=== PATIENT | male | born 1980 | race Caucasian/White ===

== ENCOUNTER 2021-11-05 21:43 | Emergency (ER) | payer MEDICARE, OTHER ==
[~2021-11-05] VITALS: Ht 175.3 cm; Wt 97.7 kg
[~2021-11-05 21:43] MED LIST: CALC1TAB15 PO
[2021-11-05] MEDS ORDERED: CALC0.253 PO (22:52)
[2021-11-05] MEDS ORDERED: OLAN10 PO (22:52)
[2021-11-05] MEDS ORDERED: FLUO40CA PO (22:52)
[2021-11-05] MEDS ORDERED: TRAZ-186 PO (22:52)
[2021-11-05] MEDS ORDERED: OLAN20TA35 PO (22:52)
[2021-11-05] MEDS ORDERED: DOCU-385 PO (22:55)
[2021-11-05] MEDS ORDERED: AMLO5TAB66 PO (22:55)
[2021-11-05] MEDS ORDERED: DIVA-80 PO (22:55)
[2021-11-05] MEDS ORDERED: DIVA-85 PO (22:55)
[2021-11-05] MEDS ORDERED: VALP250C48 PO (22:55)
[2021-11-05] MEDS ORDERED: ACETAMINOPHEN 500 MG TABLET PO ONE (23:15)
[2021-11-06 00:51] LABS: COVID AG,FIA SOURCE NASOPHARYNGEAL
[2021-11-06 01:10] LABS: INFLUENZA TYPE A NEGATIVE FOR TYPE A (NEGATIVE); INFLUENZA TYPE B NEGATIVE FOR TYPE B (NEGATIVE)
[2021-11-06 04:07] LABS: BASOPHILS % (AUTO) 0.5 % (0.0-2.0); EOSINOPHILS % (AUTO) 5.6 % (1.0-6.0); HEMOGLOBIN 12.2 g/dL (13.5-17.5); LYMPHOCYTES # (AUTO) 1.8 K/uL (1.0-4.8); LYMPHOCYTES % (AUTO) 27.8 % (22.0-44.0); MEAN CORPUSCULAR HEMOGLOBIN 29.8 pg (26.0-34.0); MEAN CORPUSCULAR HGB CONC 33.9 G/dL (31.0-37.0); MEAN CORPUSCULAR VOLUME 88 fL (80-100); MONOCYTES # (AUTO) 0.7 K/uL (0.1-1.0); NEUTROPHILS # (AUTO) 3.5 K/uL (1.8-7.7); NEUTROPHILS % (AUTO) 55.1 % (40.0-70.0); PLATELET COUNT (AUTO) 132 K/uL (150-450); RED BLOOD CELL COUNT(AUTO) 4.09 MIL/uL (4.50-5.90); RED CELL DISTRIBUTION WIDTH 12.5 % (11.5-14.5)
[2021-11-06 04:17] LABS: CREATININE 1.4 mg/dL (0.60-1.30)
[2021-11-06 04:22] LABS: BILIRUBIN,TOTAL 0.2 mg/dL (0.1-1.0); TOTAL PROTEIN, SERUM 6.8 g/dL (6.4-8.2)
[2021-11-06 04:31] VITALS: BP 123/80
== END 2021-11-06 05:29 | disposition home or self-care (01) ==
LOC: EMS 21:45
DX: R52 Pain, unspecified (principal); F41.9 Anxiety disorder, unspecified; F31.9 Bipolar disorder, unspecified; F20.9 Schizophrenia, unspecified; F60.9 Personality disorder, unspecified; Z20.822 Contact with and (suspected) exposure to COVID-19
CPT/HCPCS: 80053; 85025; 87804; 99285

== ENCOUNTER 2023-03-12 18:53 | Inpatient (IN) | payer MEDICARE, MEDICAID ==
[~2023-03-12] VITALS: Ht 175.3 cm; Wt 96.2 kg
[~2023-03-12 18:53] MED LIST changes: +AMLO5TAB66 PO; +CALC0.253 PO; +DIVA-85 PO; +DIVA500T53 PO; +DOCU-385 PO; +FLUO40CA PO; +OLAN10 PO; +OLAN20TA35 PO; +TRAZ-186 PO; +VALP250C48 PO
[2023-03-12] MEDS ORDERED: DIVA-112 PO (19:09)
[2023-03-12] MEDS ORDERED: TRAZ-257 PO (19:09)
[2023-03-12] MEDS ORDERED: RISP2TAB45 PO (19:09)
[2023-03-12] MEDS ORDERED: LORA10TA7 PO (19:09)
[2023-03-12] MEDS ORDERED: OLAN10TA74 PO (19:09)
[2023-03-12] MEDS ORDERED: OS500 PO (19:09)
[2023-03-12] MEDS ORDERED: CALC0.5C11 PO (19:09)
[2023-03-12 21:04] LABS: BASOPHILS % (AUTO) 0.9 % (0.0-2.0); EOSINOPHILS % (AUTO) 1.5 % (1.0-6.0); HEMATOCRIT 38.8 % (41-53); HEMOGLOBIN 13.1 g/dL (13.5-17.5); LYMPHOCYTES # (AUTO) 1.8 K/uL (1.0-4.8); LYMPHOCYTES % (AUTO) 24.9 % (22.0-44.0); MEAN CORPUSCULAR HEMOGLOBIN 30.4 pg (26.0-34.0); MEAN CORPUSCULAR HGB CONC 33.8 G/dL (31.0-37.0); MEAN CORPUSCULAR VOLUME 90 fL (80-100); MONOCYTES # (AUTO) 0.6 K/uL (0.1-1.0); MONOCYTES % (AUTO) 8.4 % (2.0-9.0); NEUTROPHILS # (AUTO) 4.5 K/uL (1.8-7.7); NEUTROPHILS % (AUTO) 64.3 % (40.0-70.0); PLATELET COUNT (AUTO) 154 K/uL (150-450); RED CELL DISTRIBUTION WIDTH 13.4 % (11.5-14.5)
[2023-03-12 21:16] LABS: ANION GAP 3 mmol/L (8-16); CALCIUM, TOTAL 8.7 mg/dL (8.8-10.5); CARBON DIOXIDE 28 mmol/L (22-29); CHLORIDE 102 mmol/L (98-107); CREATININE 1.28 mg/dL (0.60-1.30); GLOMERULAR FILTR. RATE CALC > 60 mL/min (>60); GLUCOSE,RANDOM 105 mg/dL (70-110); POTASSIUM 3.6 mmol/L (3.5-5.1); SODIUM SERUM 133 mmol/L (136-145)
[2023-03-12 21:21] LABS: ALANINE AMINOTRANSFERASE 19 U/L (12-78); ALBUMIN 3.4 g/dL (3.4-5.0); ALKALINE PHOSPHATASE 56 U/L (46-116); ASPARTATE AMINOTRANSFERASE 9 U/L (15-37); BILIRUBIN,TOTAL 0.3 mg/dL (0.1-1.0); TOTAL PROTEIN, SERUM 7.2 g/dL (6.4-8.2)
[2023-03-12] MEDS ORDERED: OLANZapine 5 MG TABLET PO ONE (22:15)
[2023-03-12] MEDS ORDERED: TraZODone HCL 50 MG TABLET PO ONE (22:15)
[2023-03-12 22:16] LABS: COVID AG,FIA SOURCE NASAL SWAB
[2023-03-13 06:44] LABS: APPEARANCE,URINE CLEAR (CLEAR); BILIRUBIN,URINE NEGATIVE (NEGATIVE); GLUCOSE, URINE (UA) NEGATIVE (NEGATIVE); KETONES,URINE NEGATIVE (NEGATIVE); LEUKOCYTE ESTERASE ,URINE NEGATIVE (NEGATIVE); NITRATE,URINE NEGATIVE (NEGATIVE); OCCULT BLOOD,URINE NEGATIVE (NEGATIVE); PROTEIN,URINE NEGATIVE (NEGATIVE); SPECIFIC GRAVITIY, URINE 1.011 (1.003-1.030); UROBILINOGEN,URINE <=1.0 mg/dL (<=1.0)
[2023-03-13 06:49] LABS: AMPHET/METH SCREEN,URINE NEGATIVE (NEGATIVE); BARBITURATE SCREEN, URINE NEGATIVE (NEGATIVE); BENZODIAZEPINES SCREEN,URINE NEGATIVE (NEGATIVE); CANNABINOID SCREEN,URINE NEGATIVE (NEGATIVE); COCAINE SCREEN,URINE NEGATIVE (NEGATIVE); METHADONE SCREEN, URINE NEGATIVE (NEGATIVE); OPIATE SCREEN,URINE NEGATIVE (NEGATIVE); PHENCYCLIDINE SCREEN,URINE NEGATIVE (NEGATIVE)
[2023-03-13 23:06] VITALS: BP 126/88; PULSE 83; RESP 18; TEMP 97.8
[2023-03-13 23:29] VITALS: BP 126/88; PULSE 83; RESP 18; TEMP 97.8; O2SAT 98
[2023-03-14] MEDS ORDERED: LOPERAMIDE HCL 2 MG CAPSULE PO PRN (07:15)
[2023-03-14] MEDS ORDERED: ALBUTEROL SULFATE HFA 90 MCG/PUFF 8 GM INHALER IH PRN (07:15)
[2023-03-14] MEDS ORDERED: CloNIDine HCL 0.1 MG TABLET PO PRN (07:15)
[2023-03-14] MEDS ORDERED: PETROLATUM,WHITE 28 GM JELLY TP PRN (07:15)
[2023-03-14] MEDS ORDERED: DOCUSATE SODIUM 100 MG CAPSULE PO PRN (07:15)
[2023-03-14] MEDS ORDERED: ACETAMINOPHEN 325 MG TABLET PO PRN (07:15)
[2023-03-14] MEDS ORDERED: OMEPRAZOLE 20 MG CAPSULE PO PRN (07:15)
[2023-03-14] MEDS ORDERED: BACITRACIN 28 GM OINTMENT TP PRN (07:15)
[2023-03-14] MEDS ORDERED: MAGNESIUM HYDROXIDE SUSPENSION 30 ML UDCUP PO PRN (07:15)
[2023-03-14] MEDS ORDERED: ONDANSETRON HCL 4 MG TABLET PO PRN (07:15)
[2023-03-14] MEDS ORDERED: IBUPROFEN 600 MG TABLET PO PRN (07:15)
[2023-03-14] MEDS ORDERED: BENZOCAINE/MENTHOL LOZENGE PO PRN (07:15)
[2023-03-14] MEDS ORDERED: MAG HYDROX/AL HYDROX/SIMETH ES 30 ML SUSPENSION UDCUP PO PRN (07:15)
[2023-03-14 08:30] VITALS: BP 112/71; PULSE 80; RESP 17; TEMP 97.8; O2SAT 96
[2023-03-14] MEDS: AmLODIPine BESYLATE 5 MG TABLET PO SCH (10:03)
[2023-03-14] MEDS: LORATADINE 10 MG TABLET PO SCH (10:03)
[2023-03-14] MEDS: HALOPERIDOL 5 MG TABLET PO PRN (14:51)
[2023-03-14] MEDS: LORazepam 2 MG TABLET PO PRN (14:51)
[2023-03-14 20:26] VITALS: BP 119/83; PULSE 92; RESP 18; TEMP 98.2; O2SAT 96
[2023-03-15] MEDS: AmLODIPine BESYLATE 5 MG TABLET PO SCH (08:32)
[2023-03-15] MEDS: LORATADINE 10 MG TABLET PO SCH (08:32)
[2023-03-15] MEDS: LORazepam 2 MG TABLET PO PRN ×2 (12:25→20:40)
[2023-03-15] MEDS: HALOPERIDOL 5 MG TABLET PO PRN (12:25)
[2023-03-15 13:22] VITALS: BP 125/86; PULSE 86; RESP 17; TEMP 98; O2SAT 98
[2023-03-15] MEDS: RisperiDONE 3 MG TABLET PO SCH (17:11)
[2023-03-15] MEDS: DIVALPROEX SODIUM 500 MG DR TABLET PO SCH (17:11)
[2023-03-15] MEDS: LITHIUM CARBONATE 300 MG CAPSULE PO SCH (17:11)
[2023-03-15 20:12] VITALS: BP 107/74; PULSE 94; RESP 17; TEMP 97.2; O2SAT 93
[2023-03-15] MEDS: TraZODone HCL 100 MG TABLET PO SCH (20:33)
[2023-03-16] MEDS: RisperiDONE 3 MG TABLET PO SCH ×2 (08:22→16:01)
[2023-03-16] MEDS: DIVALPROEX SODIUM 500 MG DR TABLET PO SCH ×2 (08:22→16:01)
[2023-03-16] MEDS: AmLODIPine BESYLATE 5 MG TABLET PO SCH (08:22)
[2023-03-16] MEDS: LORATADINE 10 MG TABLET PO SCH (08:22)
[2023-03-16] MEDS: LITHIUM CARBONATE 300 MG CAPSULE PO SCH ×2 (08:22→16:01)
[2023-03-16 08:42] VITALS: BP 120/80; PULSE 86; RESP 17; TEMP 98.3; O2SAT 98
[2023-03-16] MEDS: LORazepam 2 MG TABLET PO PRN (18:26)
[2023-03-16] MEDS: TraZODone HCL 100 MG TABLET PO SCH (20:26)
[2023-03-16 20:36] VITALS: BP 129/84; PULSE 100; RESP 17; TEMP 97; O2SAT 95
[2023-03-16] MEDS: ZOLPIDEM TARTRATE 10 MG TABLET PO PRN (20:47)
[2023-03-17] MEDS: DIVALPROEX SODIUM 500 MG DR TABLET PO SCH ×2 (08:24→15:59)
[2023-03-17] MEDS: LORATADINE 10 MG TABLET PO SCH (08:24)
[2023-03-17] MEDS: LITHIUM CARBONATE 300 MG CAPSULE PO SCH ×2 (08:24→15:59)
[2023-03-17] MEDS: RisperiDONE 3 MG TABLET PO SCH ×2 (08:24→15:59)
[2023-03-17 08:25] VITALS: BP 115/77; PULSE 80; RESP 18; TEMP 97.8; O2SAT 96
[2023-03-17] MEDS: AmLODIPine BESYLATE 5 MG TABLET PO SCH (08:25)
[2023-03-17] MEDS: LORazepam 2 MG TABLET PO PRN ×2 (11:01→15:24)
[2023-03-17] MEDS: TraZODone HCL 100 MG TABLET PO SCH (20:09)
[2023-03-17] MEDS: ZOLPIDEM TARTRATE 10 MG TABLET PO PRN (20:09)
[2023-03-17 20:15] VITALS: BP 111/78; PULSE 103; RESP 18; TEMP 97.7; O2SAT 95
[2023-03-18] MEDS: DIVALPROEX SODIUM 500 MG DR TABLET PO SCH ×2 (08:06→16:30)
[2023-03-18] MEDS: RisperiDONE 3 MG TABLET PO SCH ×2 (08:06→16:30)
[2023-03-18] MEDS: AmLODIPine BESYLATE 5 MG TABLET PO SCH (08:06)
[2023-03-18] MEDS: LORATADINE 10 MG TABLET PO SCH (08:06)
[2023-03-18] MEDS: LITHIUM CARBONATE 300 MG CAPSULE PO SCH ×2 (08:06→16:30)
[2023-03-18 08:37] VITALS: BP 119/88; PULSE 102; RESP 18; TEMP 97.5; O2SAT 96
[2023-03-18] MEDS ORDERED: RISP3TAB63 PO (13:06)
[2023-03-18] MEDS ORDERED: LITH300C3 PO (13:07)
== END 2023-03-18 17:46 | disposition home or self-care (01) | DRG 885 ==
LOC: EMS 18:55 → B2X 03-13 21:14
PROVIDERS: ADMIT Psychiatry & Neurology Psychiatry; ATTEND Psychiatry & Neurology Psychiatry
DX: F25.9 Schizoaffective disorder, unspecified (principal); F79 Unspecified intellectual disabilities; E87.1 Hypo-osmolality and hyponatremia; G47.00 Insomnia, unspecified; J31.0 Chronic rhinitis; Z20.822 Contact with and (suspected) exposure to COVID-19; F41.9 Anxiety disorder, unspecified; K59.00 Constipation, unspecified; F60.9 Personality disorder, unspecified; F31.9 Bipolar disorder, unspecified; Z79.899 Other long term (current) drug therapy; Z72.0 Tobacco use
CPT/HCPCS: 80053; 80164; 80307; 81003; 85025; 99285; G0480